=== PATIENT | male | born 2000 | race Caucasian/White ===

== ENCOUNTER 2024-02-11 11:45 | Emergency (ER) | payer BC, SELFPAY ==
[2024-02-11 12:49] LABS: Specific Gravity 1.011 (1.005-1.030); Urine Bilirubin NEGATIVE (Negative); Urine Blood Negative (Negative); Urine Clarity Clear (Clear); Urine Color Colorless (Yellow); Urine Glucose NEGATIVE (Negative); Urine Ketones NEGATIVE (Negative); Urine Microscopic Reflex YN NO UMIC; Urine Nitrite NEGATIVE (Negative); Urine Protein NEGATIVE (Negative); Urine Urobilinogen Normal (Normal)
[2024-02-11 12:52] LABS: Absolute Basophils 0.1 K/uL (0-0.5); Absolute Lymphocytes (CBC) 1.3 K/uL (0.7-4.9); Absolute Monocytes 0.4 K/uL (0.1-1.3); Absolute Neutrophil 2.4 K/uL (1.8-8.0); Basophils % 1.4 % (0-1.3); Eosinophils % 0.9 % (0-4.4); Hematocrit 45.8 % (39.6-49.0); Hemoglobin 15.6 g/dL (13.6-17.9); Lymphocytes % 31.1 % (15.3-44.8); MCV 88.2 fL (80-100); MPV 9.2 fL (7.6-11.3); Monocytes % 9.7 % (3.3-12.3); Neutrophils % 56.9 % (41.7-73.7); Platelets 205 thou/uL (152-406); RBC Red Blood Cell Count 5.19 M/uL (4.33-5.43); Red Cell Distribution Width 13.6 % (12.1-15.2)
[2024-02-11 13:02] LABS: Albumin 4.2 g/dL (3.4-5.0); Albumin/Globulin Ratio 1.3 (1.1-1.8); Anion Gap 5.8 mEq/L (5.0-15.0); Bilirubin Total 2.1 mg/dL (0.2-1.0); Globulin 3.3 g/dL (2.3-3.5); Potassium 3.8 mEq/L (3.5-5.1); Protein, Total 7.5 g/dL (6.4-8.2)
--- NOTE | 2024-02-11 13:50 | RAD REPORT ---
EXAMINATION: CT ABDOMEN AND PELVIS WITH CONTRAST CLINICAL INDICATION: ABD PAIN TECHNIQUE: CT abdomen and pelvis was performed, after the administration of IV contrast[facility] Axial, sagittal and coronal reconstructions were obtained. One or more of the following dose reduction techniques were used: Automated exposure control, adjustment of the mA and k V according to patient size, and iterative reconstruction. Unless otherwise specified, incidental findings do not require dedicated imaging follow-up. COMPARISON: No prior exam. FINDINGS: LOWER CHEST: The visualized lung bases are clear. LIVER: Normal in size and contour. No focal lesion. Grossly unremarkable gallbladder. SPLEEN: Normal size. No focal lesion. PANCREAS: No mass, ductal dilation, or yara-pancreatic fluid. ADRENALS: Normal; no mass. KIDNEYS: Normal size and contour. No hydronephrosis. GASTROINTESTINAL TRACT: No evidence of free air, significant intra-abdominal free fluid, bowel obstru ction or abscess. There is mild diverticulosis coli of the sigmoid colon without diverticulitis. APPENDIX: Normal appendix. LYMPH NODES: No lymphadenopathy. MUSCULOSKELETAL: No acute or suspicious osseous abnormality. ADDITIONAL FINDINGS: Small fat-containing umbilical hernia. IMPRESSION: No acute or concerning abnormalities seen in the abdomen or pelvis.
--- NOTE | 2024-02-11 14:40 | EDPHYS ---
Physician Documentation [facility] Name: Jacob Negrete Age: 23 yrs Sex: Male : 2000 Arrival Date: 02/11/2024 Time: 11:45 Bed 18 Private MD: ED Physician Angel Oconnor HPI: 02/10 16:48 This 23 yrs old Male presents to ER via Ambulatory with complaints of Abdominal Pain. rt 16:48 Patient presents to the ED with an intermittent right-sided abdominal pain for about a rt week. Patient states that it comes and goes, denies any inciting or alleviating factors. Denies any nausea, vomiting. Denies other acute complaints, symptoms are mild in severity, no other aggravating or alleviating factors.. Historical: - Allergies: 12:06 No Known Allergies; ll1 - Home Meds: 12:06 None [Active]; ll1 - PMHx: 12:06 None; ll1 - PSHx: 12:06 Tonsillectomy; ll1 - Immunization history:: Adult Immunizations up to date. - Infectious Disease History:: Denies. - Social history:: Smoking status: Reported history of juuling and/or vaping. Patient denies any tobacco usage or history of. - Family history:: not pertinent. ROS: 16:48 Constitutional: Negative for fever, chills, and weight loss, Cardiovascular: Negative rt for chest pain, palpitations, and edema, Respiratory: Negative for shortness of breath, cough, wheezing, and pleuritic chest pain, MS/Extremity: Negative for injury and deformity, Skin: Negative for injury, rash, and discoloration, Neuro: Negative for headache, weakness, numbness, tingling, and seizure, 16:48 Abdomen/GI: Positive for abdominal pain, Negative for nausea and vomiting, 16:48 : Negative for urinary symptoms, testicular pain rt Exam: 16:48 Constitutional: This is a well developed, well nourished patient who is awake, alert, rt and in no acute distress. Head/Face: Normocephalic, atraumatic. Chest/axilla: Normal chest wall appearance and motion. Nontender with no deformity. No lesions are appreciated. Cardiovascular: Regular rate and rhythm with a normal S1 and S2. No gallops, murmurs, or rubs. Normal PMI, no JVD. No pulse deficits. Respiratory: Lungs have equal breath sounds bilaterally, clear to auscultation and percussion. No rales, rhonchi or wheezes noted. No increased work of breathing, no retractions or nasal flaring. Skin: Warm, dry with normal turgor. Normal color with no rashes, no lesions, and no evidence of cellulitis. MS/ Extremity: Pulses equal, no cyanosis. Neurovascular intact. Full, normal range of motion. 16:48 Abdomen/GI: Minimal right lower quadrant tenderness without rebound, guarding, distention, Vital Signs: 12:06 BP 146 / 80; Pulse 65; Resp 16; Temp 98.6; Pulse Ox 100% ; Weight 68.04 kg; Height 5 ll1 ft. 10 in. ; Pain 0/10; 12:57 BP 135 / 95; Pulse 69; Resp 16; Pulse Ox 100% on R/A; mb9 14:26 BP 124 / 84; Pulse 74; Resp 18; Pulse Ox 100% on R/A; mb9 12:06 Body Mass Index 21.52 (68.04 kg, 177.8 cm) ll1 12:06 Pain Scale: Adult ll1 MDM: 12:08 Medical Screening Exam initiated rt 16:48 Differential Diagnosis Appendicitis, nonspecific abdominal pain, cholelithiasis, kidney rt stone. Data reviewed: vital signs, nurses notes, lab test result(s), radiologic studies. Independent interpretation of the following test(s) in the Emergency Department CT Scan: My interpretation is No bowel obstruction syndrome interpretation of CT scan images. Counseling: I had a detailed discussion with the patient and/or guardian regarding the historical points, exam findings, and any diagnostic results supporting the discharge/admit diagnosis, lab results, radiology results, the need for outpatient follow up, to return to the emergency department if symptoms worsen or persist or if there are any questions or concerns that arise at home. Response to treatment: the patient's symptoms have mildly improved after treatment. 02/10 12:14 Order name: CBC with Diff; Complete Time: 13:05 rt 02/10 12:14 Order name: CMP; Complete Time: 13:05 rt 02/10 12:14 Order name: Lipase; Complete Time: 13:05 rt 02/10 12:14 Order name: Urinalysis w/ reflexes; Complete Time: 13:05 rt 02/10 12:14 Order name: CT Abd/Pelvis - IV Contrast Only; Complete Time: 13:51 rt 02/10 12:14 Order name: IV Saline Lock; Complete Time: 12:36 rt 02/10 12:14 Order name: Labs collected and sent; Complete Time: 12:36 rt Administered Medications: No medications were administered Disposition Summary: 02/11/24 14:39 Discharge Ordered Notes: Location: Home rt Problem: new rt Symptoms: have improved rt Condition: Stable rt Diagnosis - Abdominal pain, unspecified rt Followup: rt - With: Private Physician - When: 2 - 3 days - Reason: Discharge Instructions: - Discharge Summary Sheet rt - Abdominal Pain, Adult rt Forms: - Medication Reconciliation Form rt - Antibiotic Education rt - Prescription Opioid Use rt - Patient Portal Instructions rt - Leadership Thank You Letter rt Signatures: Dispatcher [employer] Yanelis Martinez RN RN ll1 Amna Gregg RN RN mb9 Angel Oconnor MD MD rt
--- NOTE | 2024-02-11 14:40 | ER ---
Nurse's Notes [facility] Name: Jacob Negrete Age: 23 yrs Sex: Male : 2000 Arrival Date: 02/11/2024 Time: 11:45 Bed 18 Private MD: Diagnosis: Abdominal pain, unspecified Presentation: 02/10 12:06 Chief complaint: Patient states: R sided abdomina; pain off/on for 1 week. Coronavirus ll1 screen: Client denies travel out of the [place] in the last 14 days. At this time, the client does not indicate any symptoms associated with coronavirus-19. Ebola Screen: Patient denies travel to an Ebola-affected area in the 21 days before illness onset. Initial Sepsis Screen: Does the patient meet any 2 criteria? No. Patient's initial sepsis screen is negative. Does the patient have a suspected source of infection? No. Patient's initial sepsis screen is negative. Risk Assessment: Do you want to hurt yourself or someone else? Patient reports no desire to harm self or others. Onset of symptoms was February 05, 2024. 12:06 Method Of Arrival: Ambulatory ll1 12:06 Acuity: SEAN 3 ll1 Triage Assessment: 12:06 General: Appears in no apparent distress. Behavior is calm, cooperative, appropriate ll1 for age. Pain: Denies pain. GI: Reports upper abdominal pain. Historical: - Allergies: 12:06 No Known Allergies; ll1 - Home Meds: 12:06 None [Active]; ll1 - PMHx: 12:06 None; ll1 - PSHx: 12:06 Tonsillectomy; ll1 - Immunization history:: Adult Immunizations up to date. - Infectious Disease History:: Denies. - Social history:: Smoking status: Reported history of juuling and/or vaping. Patient denies any tobacco usage or history of. - Family history:: not pertinent. Screenin:23 [facility] ED Fall Risk Assessment (Adult) History of falling in the last 3 months, mb9 including since admission No falls in past 3 months (0 pts) Confusion or Disorientation No (0 pts) Intoxicated or Sedated No (0 pts) Impaired Gait No (0 pts) Mobility Assist Device Used No (0 pt) Altered Elimination No (0 pt) Score/Fall Risk Level 0 - 2 = Low Risk Oriented to surroundings, Maintained a safe environment, Educated pt \T\ family on fall prevention, incl call for assistance when getting out of bed. Abuse screen: Denies threats or abuse. Nutritional screening: No deficits noted. Tuberculosis screening: No symptoms or risk factors identified. Assessment: 12:34 General: Appears in no apparent distress. Behavior is calm, cooperative. Pain: mb9 Complains of pain in abdomen Pain does not radiate. Pain currently is 0 out of 10 on a pain scale. Quality of pain is described as throbbing, Pain began suddenly, Is intermittent. Neuro: Mckinney Agitation-Sedation Scale (RASS): 0 - Alert and Calm Level of Consciousness is awake, alert, obeys commands, Oriented to person, place, time, situation, Appropriate for age. Cardiovascular: Patient's skin is warm and dry. Respiratory: Airway is patent Respiratory effort is even, unlabored, Respiratory pattern is regular, symmetrical. GI: Abdomen is flat, non-distended, Bowel sounds present X 4 quads. Abd is soft and non tender X 4 quads. : No signs and/or symptoms were reported regarding the genitourinary system. EENT: No signs and/or symptoms were reported regarding the EENT system. Derm: Skin is pink, warm \T\ dry. Musculoskeletal: Range of motion: intact in all extremities. 14:26 Reassessment: No changes from previously documented assessment. Patient and/or family mb9 updated on plan of care and expected duration. Pain level reassessed. Patient is alert, oriented x 3, equal unlabored respirations, skin warm/dry/pink. Vital Signs: 12:06 BP 146 / 80; Pulse 65; Resp 16; Temp 98.6; Pulse Ox 100% ; Weight 68.04 kg; Height 5 ll1 ft. 10 in. ; Pain 0/10; 12:57 BP 135 / 95; Pulse 69; Resp 16; Pulse Ox 100% on R/A; mb9 14:26 BP 124 / 84; Pulse 74; Resp 18; Pulse Ox 100% on R/A; mb9 12:06 Body Mass Index 21.52 (68.04 kg, 177.8 cm) ll1 12:06 Pain Scale: Adult ll1 ED Course: 11:50 Patient arrived in ED. mg5 11:52 Arm band placed on. ll1 12:04 Angel Oconnor MD is Attending Physician. rt 12:07 Triage completed. ll1 12:22 Amna Gregg, RN is Primary Nurse. mb9 12:22 Patient placed in an exam room, on a stretcher. ll1 12:23 Placed in gown. Bed in low position. Call light in reach. Side rails up X 1. Provided mb9 Education on: press call light if needing anything. Client placed on continuous cardiac and pulse oximetry monitoring. NIBP monitoring applied. 12:34 Initial lab(s) drawn, by me, sent to lab. Inserted saline lock: 20 gauge in right mb9 antecubital area, using aseptic technique. Blood collected. Flushed with 10 mL NS. 12:35 No provider procedures requiring assistance completed. Urine collected: clean catch mb9 specimen, clear. 13:[address] via wheelchair. mb9 13:34 CT Abd/Pelvis - IV Contrast Only In Process Unspecified. EDMS 14:55 IV discontinued, intact, bleeding controlled, No redness/swelling at site. Pressure mb9 dressing applied. Administered Medications: No medications were administered Medication: 12:23 VIS not applicable for this client. mb9 Outcome: 14:39 Discharge ordered by MD. rt 14:55 Discharged to home ambulatory, with family, mb9 14:55 Condition: stable 14:55 Discharge instructions given to family, Instructed on discharge instructions, follow up and referral plans. Demonstrated understanding of instructions, follow-up care, 14:56 Patient left the ED. mb9 Signatures: Dispatcher [employer] EDMS Yanelis Hernandez RN RN [facility] Amna Gregg, RN RN mb9 Angel Oconnor MD MD rt Sharla Miller mg5
[2024-02-11 16:01] VITALS: TEMP 98.6; O2SAT 100
[2024-02-11 16:12] VITALS: BP 124/84
== END 2024-02-11 14:56 | disposition home or self-care (01) ==
LOC: ER 11:45
DX: R10.11 Right upper quadrant pain (principal)
CPT/HCPCS: 85025; 36415; 81003; 83690; 80053; 74177; Q9967; 99284